=== PATIENT | male | born 1955 | race African-American/Black ===

== ENCOUNTER 2025-03-01 11:17 | Inpatient (IN) | payer OTHER, BC ==
[~2025-03-01] VITALS: Ht 182.9 cm; Wt 102.5 kg
[2025-03-01 11:20] VITALS: O2SAT 96
[2025-03-01] MEDS: KETOROLAC 15MG/ML VIAL IV ONE (11:53)
[2025-03-01] MEDS: SODIUM CHLORIDE 0.9% 1,000 ML IV ONE (11:53)
[2025-03-01] MEDS: ONDANSETRON HCL 4MG/2ML INJ IV ONE (11:55)
[2025-03-01 11:58] LABS: BASOPHILS % 0.5 % (0.0-2.0); EOSINOPHILS % 0.2 % (0.0-5.0); HEMATOCRIT. 42.9 % (42.0-52.0); HEMOGLOBIN. 14.6 g/dL (14.0-18.0); LYMPHOCYTES % 20.9 % (20.0-50.0); MEAN PLATELET VOLUME 10.2 fl (7.4-10.4); MONOCYTES % 6.2 % (2.0-8.0); NEUTROPHILS % 72.2 % (40.0-76.0); PLATELET 146 x1000/uL (130-400); RED BLOOD CELL COUNT 4.54 mill/uL (4.7-6.1); RED CELL DISTRIBUTION WIDTH 13.5 % (11.6-14.6)
[2025-03-01 12:16] LABS: CREATININE 2.7 mg/dL (0.6-1.3); UREA NITROGEN BLOOD 39 mg/dL (9-23)
[2025-03-01 12:18] LABS: ASPARTATE AMINOTRANSFERASE 20 IU/L (<34); BILIRUBIN DIRECT 0.2 mg/dL (<=3.0); BILIRUBIN TOTAL 0.7 mg/dL (0.1-1.0); PROTEIN TOTAL 6.7 g/dL (6.0-8.3)
[2025-03-01 14:30] VITALS: BP 159/88; PULSE 51; RESP 22; TEMP 36.3068
[2025-03-01] MEDS ORDERED: DOCUSATE SODIUM 100MG CAPSULE PO PRN (15:00)
[2025-03-01] MEDS ORDERED: IPRATROPIUM/ALBUTEROL 0.5-3(2.5)MG/3ML NEB HHN PRN (15:00)
[2025-03-01] MEDS ORDERED: ACETAMINOPHEN 325MG TABLET PO PRN (15:00)
[2025-03-01] MEDS: ONDANSETRON HCL 4MG/2ML INJ IV PRN (15:36)
[2025-03-01] MEDS: ACETAMINOPHEN 325MG TABLET PO PRN (15:36)
[2025-03-01 16:00] VITALS: BP 157/134; PULSE 48; RESP 18; TEMP 36.2; O2SAT 100
[2025-03-01] MEDS ORDERED: HYDRALAZINE 20MG/ML VIAL IV PRN (17:45)
[2025-03-01] MEDS: HYDROCODONE/ACETAMINOPHEN 5/325MG TABLET PO SCH (17:49)
[2025-03-01] MEDS ORDERED: HYDRALAZINE 10 MG in SODIUM CHLORIDE 0.9% 49.5 ML IV PRN (18:00)
[2025-03-01] MEDS: ENOXAPARIN 40MG/0.4ML SYR SUBCUT SCH (18:00)
[2025-03-01] MEDS ORDERED: NALOXONE HCL 0.4MG/ML VIAL IV PRN (18:45)
[2025-03-01 20:00] VITALS: BP 142/73; PULSE 50; RESP 19; TEMP 37; O2SAT 100
[2025-03-01] MEDS: SODIUM CHLORIDE 0.9% 1,000 ML IV SCH (20:53)
[2025-03-01 22:19] LABS: TROPONIN I HIGH SENSITIVITY 22 ng/L (3.0-53)
[2025-03-01 22:20] LABS: PHOSPHORUS 1.4 mg/dL (2.5-4.9)
[2025-03-01] MEDS: PANTOPRAZOLE SODIUM 40 MG/VIAL IV NR (22:39)
[2025-03-01 23:24] LABS: CREATINE KINASE MB FRACTION 3.3 ng/mL (0.5-3.6); TROPONIN I HIGH SENSITIVITY 21.0 ng/L (3.0-53)
[2025-03-02] VITALS: BP 135/74; PULSE 46; RESP 18; TEMP 36.4; O2SAT 94
[2025-03-02 04:00] VITALS: BP 145/98; PULSE 50; RESP 17; TEMP 37.1; O2SAT 99
[2025-03-02 06:02] LABS: CREATINE KINASE MB FRACTION 3.4 ng/mL (0.5-3.6); TROPONIN I HIGH SENSITIVITY 27.0 ng/L (3.0-53)
[2025-03-02 06:03] LABS: CREATININE 2.9 mg/dL (0.6-1.3); UREA NITROGEN BLOOD 37.0 mg/dL (9-23)
[2025-03-02 06:16] LABS: BASOPHILS % 1.0 % (0.0-2.0); EOSINOPHILS % 0.0 % (0.0-5.0); HEMATOCRIT. 42.3 % (42.0-52.0); HEMOGLOBIN. 14.4 g/dL (14.0-18.0); LYMPHOCYTES % 7.5 % (20.0-50.0); MEAN PLATELET VOLUME 10.9 fl (7.4-10.4); MONOCYTES % 5.4 % (2.0-8.0); NEUTROPHILS % 86.1 % (40.0-76.0); PLATELET 145 x1000/uL (130-400); RED BLOOD CELL COUNT 4.47 mill/uL (4.7-6.1); RED CELL DISTRIBUTION WIDTH 13.4 % (11.6-14.6)
[2025-03-02 08:00] VITALS: BP 147/61; PULSE 49; RESP 20; TEMP 36.2; O2SAT 100
[2025-03-02] MEDS ORDERED: ENOXAPARIN 30MG/0.3ML SYR SUBCUT SCH (09:00)
[2025-03-02] MEDS: PANTOPRAZOLE SODIUM 40 MG/VIAL IV SCH (09:10)
[2025-03-02 12:00] VITALS: BP 152/69; PULSE 49; RESP 18; TEMP 36.4; O2SAT 99
[2025-03-02 16:00] VITALS: BP 174/78; PULSE 44; RESP 20; TEMP 36.4; O2SAT 99
[2025-03-02] MEDS: MAGNESIUM/ALUMINUM HYDROXIDE/SIMETHICONE 30ML UDC PO PRN (16:01)
[2025-03-02] MEDS: HYDRALAZINE 20MG/ML VIAL IV PRN (16:02)
[2025-03-02 16:33] LABS: CLARITY URINE CLEAR (CLEAR); GLUCOSE URINE NEGATIVE (NEGATIVE); KETONES URINE NEGATIVE (NEGATIVE); LEUKOCYTE ESTERASE URINE NEGATIVE (NEGATIVE); NITRITE URINE NEGATIVE (NEGATIVE); OCCULT BLOOD URINE 1+ (NEGATIVE); PH URINE 7.5 (4.5-8.0); PROTEIN URINE 3+ (NEGATIVE); SPECIFIC GRAVITY URINE 1.010 (1.005-1.030); UROBILINOGEN URINE 0.2 E.U./dL (0.2-1.0)
[2025-03-02 16:50] LABS: *AMPHETAMINES SCREEN URINE NEGATIVE (NEGATIVE); *BARBITURATES SCREEN URINE NEGATIVE (NEGATIVE); *BENZODIAZEPINES SCREEN URINE NEGATIVE (NEGATIVE); *COCAINE SCREEN URINE NEGATIVE (NEGATIVE); CANNABINOID URINE SCREEN PRESUMPTIVE POSITIVE (NEGATIVE); ECSTASY MDMA SCREEN URINE NEGATIVE (NEGATIVE); METHADONE URINE SCREEN NEGATIVE (NEGATIVE); OPIATES URINE SCREEN NEGATIVE (NEGATIVE); PHENCYCLIDINE URINE SCREEN NEGATIVE (NEGATIVE)
[2025-03-02 17:18] LABS: COLOR URINE STRAW (YELLOW)
[2025-03-02 17:19] LABS: BACTERIA URINE NONE SEEN; HYALINE CASTS URINE 0-5 /lpf; RBC URINE NONE SEEN /hpf (0-2); RENAL EPITHELIAL CELLS URINE FEW /lpf; SQUAMOUS EPITHELIAL CELL URINE RARE /lpf (RARE/1+); WBC URINE NONE SEEN /hpf (0-2)
[2025-03-02 20:00] VITALS: BP 115/76; PULSE 50; RESP 18; TEMP 36.5; O2SAT 97
[2025-03-03] VITALS: BP 118/85; PULSE 52; RESP 18; TEMP 36.5; O2SAT 98
[2025-03-03 04:00] VITALS: BP 158/64; PULSE 55; RESP 18; TEMP 36.6; O2SAT 99
[2025-03-03] MEDS: HYDROCODONE/ACETAMINOPHEN 5/325MG TABLET PO NR (09:23)
[2025-03-03] MEDS: DEXT 5%/0.45% NACL 1000ML 1,000 ML IV SCH (09:45)
[2025-03-03 12:51] LABS: BASOPHILS % 0.2 % (0.0-2.0); EOSINOPHILS % 0.0 % (0.0-5.0); HEMATOCRIT. 44.1 % (42.0-52.0); HEMOGLOBIN. 14.9 g/dL (14.0-18.0); LYMPHOCYTES % 7.8 % (20.0-50.0); MEAN PLATELET VOLUME 10.6 fl (7.4-10.4); MONOCYTES % 6.5 % (2.0-8.0); NEUTROPHILS % 85.5 % (40.0-76.0); PLATELET 150 x1000/uL (130-400); RED BLOOD CELL COUNT 4.64 mill/uL (4.7-6.1); RED CELL DISTRIBUTION WIDTH 13.5 % (11.6-14.6)
[2025-03-03 13:04] LABS: CREATININE 2.4 mg/dL (0.6-1.3)
[2025-03-03 13:05] LABS: TROPONIN I HIGH SENSITIVITY 36.0 ng/L (3.0-53); UREA NITROGEN BLOOD 26.0 mg/dL (9-23)
[2025-03-03 16:00] VITALS: BP 169/80; PULSE 56; RESP 20; TEMP 36.3; O2SAT 99
[2025-03-03 17:20] VITALS: TEMP 97.4
== END 2025-03-03 17:31 | disposition home or self-care (01) | DRG 392 ==
LOC: ER 11:17 → 7EST 13:29 → 5WST 18:00
PROVIDERS: ADMIT Internal Medicine; ATTEND Internal Medicine
DX: K52.9 Noninfective gastroenteritis and colitis, unspecified (principal); N17.9 Acute kidney failure, unspecified; N18.9 Chronic kidney disease, unspecified; I12.9 Hypertensive chronic kidney disease with stage 1 through stage 4 chronic kidney disease, or unspecified chronic kidney disease; R00.1 Bradycardia, unspecified; E78.00 Pure hypercholesterolemia, unspecified
CPT/HCPCS: 36415; 74176; 80048; 80076; 80305; 81003; 82550; 82553; 83735; 83880; 84100; 84145; 84484; 85025; 93005; 94640; 99285; A4606; J0360; J1650; J1885; J2405; J2470; J7030